=== PATIENT | male | born 1985 | race Caucasian/White ===

== ENCOUNTER 2020-03-22 20:27 | Emergency (ER) | payer BC, OTHER | END 2020-03-22 22:38 | disposition home or self-care (01) | LOC: ER1 20:27 | DX: S61.412A Laceration without foreign body of left hand, initial encounter (principal); Z23 Encounter for immunization; W45.8XXA Other foreign body or object entering through skin, initial encounter | CPT/HCPCS: 12002; 90471; 90714; 90715; 99282 ==